=== PATIENT | male | born 2000 | race Caucasian/White ===

== ENCOUNTER 2023-11-06 02:30 | Emergency (ER) | payer MEDICAID, OTHER ==
[~2023-11-06] VITALS: Ht 182.9 cm; Wt 81.2 kg
[2023-11-06] MEDS ORDERED: FLUORESCEIN SODIUM OPHTH 1 EA STRIP ONE (02:35)
[2023-11-06] MEDS ORDERED: TETRAcaine 5 ML BOTTLE ONE (02:36)
--- NOTE | 2023-11-06 02:43 | NUR ---
BIBFRIEND FROM HOME C/O R EYE IRRITATION X1 DAY. DENIES BLURRED VISION
[2023-11-06] MEDS: TETRACAINE HCL 0.5% OPHTALMIC 15 ML BOTTLE OP ONE (03:04)
[2023-11-06] MEDS: FLUORESCEIN SODIUM OPHTH 1 EA STRIP OP ONE (03:04)
[2023-11-06] MEDS ORDERED: CIPR2.5D14 RIGHTEYE (03:38)
--- NOTE | 2023-11-06 03:45 | NUR ---
Patient discharged to home in stable condition. Written and verbal after care instructions given. Patient verbalizes understanding of instruction.
[2023-11-06 03:50] VITALS: BP 132/73; TEMP 97.8; O2SAT 99
== END 2023-11-06 03:50 | disposition home or self-care (01) ==
LOC: ER 02:39
DX: S05.01XA Injury of conjunctiva and corneal abrasion without foreign body, right eye, initial encounter (principal); Z79.899 Other long term (current) drug therapy; X58.XXXA Exposure to other specified factors, initial encounter; Y93.89 Activity, other specified; Y92.89 Other specified places as the place of occurrence of the external cause; Y99.8 Other external cause status

== ENCOUNTER 2024-03-15 13:57 | Emergency (ER) | payer MEDICAID, OTHER ==
[~2024-03-15] VITALS: Ht 185.4 cm; Wt 75.7 kg
[~2024-03-15 13:57] MED LIST: CIPR2.5D14 RIGHTEYE
[2024-03-15 14:13] VITALS: TEMP 98.6
[2024-03-15 15:39] VITALS: BP 125/75; O2SAT 98
== END 2024-03-15 15:37 | disposition home or self-care (01) ==
LOC: ER 14:49
DX: R51.9 Headache, unspecified (principal); R07.0 Pain in throat; R11.2 Nausea with vomiting, unspecified